=== PATIENT | male | born 1995 | race Caucasian/White ===

== ENCOUNTER 2016-06-28 15:43 | Emergency (ER) | payer MEDICAID ==
[~2016-06-28] VITALS: Ht 177.8 cm; Wt 62.6 kg
[~2016-06-28 15:43] MED LIST: AUGMENTIN 500 M1 TAB PO; Acetaminophen/Hydrocodone Bi PO; FLONASE NASAL50 MCG NS; ISONIAZID PO; ISONIAZID100 MG PO; MIRTAZAPINE15 MG PO; MONTELUKAST TAB 10MG; MOTRIN600 MG PO; PROVENTIL HFA M18 GM; PYRIDOXINE HCL50 M1 PO; QVAR HFA M80 MCG/ACT; TYLENOL ES500 MG PO; VITAMIN B650 M1 PO; [UNRECOGNIZED DRUG - OTHER]
[2016-06-28 15:53] VITALS: BP 107/67
--- NOTE | 2016-06-28 16:34 | NUR ---
Patient ambulated to bed 07.
--- NOTE | 2016-06-28 16:55 | NUR ---
PATIENT PRESENTS TO ED WITH ABD PAIN X3 DAYS WITH SOB; . DENIES N/V/D; SKIN IS PINK/WARM/DRY; AAOX4 WITH EVEN AND STEADY GAIT; LUNGS CLEAR BL; HR EVEN AND REGULAR; PT DENIES ANY FEVER, CP, OR COUGH AT THIS TIME; PATIENT STATES PAIN OF 8/10 AT THIS TIME; VSS; PATIENT POSITIONED FOR COMFORT; HOB ELEVATED; BEDRAILS UP X2; BED DOWN. ER MD MADE AWARE OF PT STATUS.
--- NOTE | 2016-06-28 16:56 | NUR ---
Dr. Mak evaluating patient at bedside.
[2016-06-28] MEDS ORDERED: NACL 0.9% 1,000 ML IV ONE (16:57)
[2016-06-28] MEDS ORDERED: ONDANSETRON 4 MG/2 ML VIAL IVP ONE (17:00)
[2016-06-28] MEDS ORDERED: KETOROLAC 30 MG/ML VIAL IVP ONE (17:00)
--- NOTE | 2016-06-28 17:01 | NUR ---
Patient going to CT via wheelchair per tech.
--- NOTE | 2016-06-28 17:11 | NUR ---
Patient back from CT via wheelchair per tech.
--- NOTE | 2016-06-28 17:38 | NUR ---
PATIENT MEDICATED FOR NAUSE AND ABD. PAIN
[2016-06-28 18:30] VITALS: BP 129/75
--- NOTE | 2016-06-28 18:30 | NUR ---
Patient discharged with v/s stable. Written and verbal after care instructions given and explained. Patient alert, oriented and verbalized understanding of instructions. Ambulatory with steady gait. All questions addressed prior to discharge. ID band removed. Patient advised to follow up with PMD. Rx of TRAMADOL,MAGNESIUM CITRATE,LACTULOSE,ZOFRAN given. Patient educated on indication of medication including possible reaction and side effects. Opportunity to ask questions provided and answered.
== END 2016-06-28 18:30 | disposition home or self-care (01) ==
LOC: MED 15:43
DX: K59.00 Constipation, unspecified (principal); J45.909 Unspecified asthma, uncomplicated
CPT/HCPCS: 36415; 74176; 80053; 85025; 96361; 96374; 96375; 99285; J1885; J2405; J7030

== ENCOUNTER 2016-07-01 22:49 | Emergency (ER) | payer MEDICAID ==
[~2016-07-01] VITALS: Ht 177.8 cm; Wt 63.5 kg
[2016-07-01 23:26] VITALS: BP 106/84
--- NOTE | 2016-07-02 00:23 | NUR ---
PATIENT AMBULATED TO ER BED 04
--- NOTE | 2016-07-02 00:23 | NUR ---
PT TAKEN TO BED 4
--- NOTE | 2016-07-02 00:34 | NUR ---
20/M BIB FAMILY C/O N/V x TODAY. PT STATES HE WAS IN ED 2 DAYS AGO FOR ABD PAIN. PT STATES HE STARTED VOMITING x3 TODAY AND DURING THE THIRD TIME HE NOTICED BLOOD ON HIS VOMIT. PT STATES PAIN IN LOWER ABDOMEN 8/10 PRESSURE NON-RADIATING. AAOx4 PERRLA, BREATHING EVEN AND EFFORTLESS. ERMD AWARE OF PATIENT STATUS.
--- NOTE | 2016-07-02 00:52 | NUR ---
Dr. Tomlinson evaluating patient at bedside.
[2016-07-02] MEDS ORDERED: FAMOTIDINE 20 MG TAB PO ONE (01:30)
--- NOTE | 2016-07-02 01:38 | NUR ---
PO MEDICATION GIVEN ORDERED WITH EDUCATION. PATIENT VERBALIZED UNDERSTANDING AND TOLERATED WELL. WILL REASSESS
--- NOTE | 2016-07-02 01:52 | NUR ---
Patient discharged with v/s stable. Written and verbal after care instructions given and explained by DR. Tomlinson. Patient alert, oriented and verbalized understanding of instructions. Ambulatory with steady gait. All questions addressed prior to discharge. ID band removed. Patient advised to follow up with PMD. Rx of PEPCID 40MG TABLET given. Patient educated on indication of medication including possible reaction and side effects. Opportunity to ask questions provided and answered.
[2016-07-02 01:56] VITALS: BP 111/72
== END 2016-07-02 01:52 | disposition home or self-care (01) ==
LOC: MED 22:49
DX: K25.9 Gastric ulcer, unspecified as acute or chronic, without hemorrhage or perforation (principal); J45.909 Unspecified asthma, uncomplicated

== ENCOUNTER 2016-09-08 12:11 | Emergency (ER) | payer MEDICAID ==
[~2016-09-08] VITALS: Ht 177.8 cm; Wt 59.0 kg
[~2016-09-08 12:11] MED LIST changes: +ALBU0.0912; -AUGMENTIN 500 M1 TAB PO; +BECL0.089; -FLONASE NASAL50 MCG NS; -ISONIAZID PO; -ISONIAZID100 MG PO; -MIRTAZAPINE15 MG PO; -MONTELUKAST TAB 10MG; -MOTRIN600 MG PO; -PROVENTIL HFA M18 GM; -PYRIDOXINE HCL50 M1 PO; -QVAR HFA M80 MCG/ACT; -TYLENOL ES500 MG PO; -VITAMIN B650 M1 PO; -[UNRECOGNIZED DRUG - OTHER]
[2016-09-08 12:25] VITALS: BP 80/49
[2016-09-08 14:17] LABS: BASOPHILS # (AUTO) 0.2 K/uL (0.00-0.22); EOSINOPHILS # (AUTO) 0.2 K/uL (0-0.4); EOSINOPHILS % (AUTO) 2.1 % (0.0-4.0); HEMOGLOBIN 14.8 g/dL (12.0-18.0); LYMPHOCYTES # (AUTO) 1.5 K/uL (2.0-11.5); LYMPHOCYTES % (AUTO) 14.9 % (20.5-51.1); MEAN CORPUSCULAR HEMOGLOBIN 31 pg (27-31); MEAN CORPUSCULAR HGB CONC 34 g/dL (33-37); MEAN CORPUSCULAR VOLUME 91 fL (80-94); MONOCYTES # (AUTO) 0.7 K/uL (0.8-1.0); MONOCYTES % (AUTO) 6.9 % (1.7-9.3); NEUTROPHILS # (AUTO) 7.3 K/uL (1.8-7.7); PLATELET COUNT (AUTO) 268 K/uL (140-450); RED BLOOD CELL COUNT(AUTO) 4.83 MIL/uL (4.20-6.10); RED CELL DISTRIBUTION WIDTH 12.2 % (11.6-13.7); WHITE BLOOD COUNT (AUTO) 9.9 K/uL (4.8-10.8)
[2016-09-08 14:26] LABS: ANION GAP 6.8 (8-16); CALCIUM 8.8 mg/dL (8.5-10.1); CARBON DIOXIDE 33.3 mmol/L (21-32); CHLORIDE 108 mmol/L (98-107); CREATININE 0.9 mg/dL (0.6-1.3); GFR ARICAN-AMERICAN 137 mL/min (>90); GFR NON ARICAN-AMERICAN 113 mL/min (>90); GLUCOSE 87 mg/dL (74-106); POTASSIUM 4.1 mmol/L (3.5-5.1); SODIUM SERUM 144 mmol/L (136-145); UREA NITROGEN, BLOOD 14 mg/dL (7-18)
[2016-09-08 14:32] LABS: ALANINE AMINOTRANSFERASE 32 U/L (12-78); ALBUMIN 3.9 g/dL (3.4-5.0); ALKALINE PHOSPHATASE 95 U/L (46-116); ASPARTATE AMINOTRANSFERASE 17 U/L (15-37); TOTAL BILIRUBIN 0.3 mg/dL (0.0-1.0); TOTAL PROTEIN, SERUM 7.5 g/dL (6.4-8.2)
[2016-09-08 14:33] LABS: ALCOHOL, BLOOD < 3 mg/dL (<3)
[2016-09-08 15:00] VITALS: BP 101/61
[2016-09-08 15:40] LABS: APPEARANCE,URINE HAZY (CLEAR); BILIRUBIN,URINE NEGATIVE (NEGATIVE); BLOOD, URINE TRACE-L (NEGATIVE); COLOR,URINE YELLOW (YELLOW); NITRITE, URINE POSITIVE (NEGATIVE); PH,URINE 6.5 (5.0-9.0); PROTEIN,URINE NEGATIVE (NEGATIVE); UGLUCOSE NEGATIVE (NEGATIVE)
[2016-09-08 15:45] LABS: AMPHETAMINE, URINE POS. ng/ml (NEG <=1000); BARBITURATE, URINE NEG. ng/ml (NEG <=200); BENZODIAZEPINE, URINE NEG. ng/mL (NEG <=200); CANNABINOID, URINE NEG. ng/mL (NEG <=50); COCAINE, URINE NEG. ng/mL (NEG <=300); OPIATE, URINE NEG. ng/mL (NEG <=2000); PHENCYCLIDINE SCREEN,URINE NEG. ng/mL (NEG <=25)
[2016-09-08 15:52] LABS: LEUKOCYTE ESTERASE ,URINE TRACE (NEGATIVE); RBC,URINE 0-3 /HPF (0-5); WBC,URINE 15-30 /HPF (0-5)
[2016-09-08 15:53] LABS: BACTERIA,URINE 2+ /HPF (None Seen); MUCUS,URINE 1+ /LPF (None Seen); SQUAMOUS EPITHELIAL CELL,UR 0-3 /LPF (0-3 (FEW)); URINE AMORPHOUS URATE 1+ /HPF (None Seen)
== END 2016-09-08 15:10 | disposition left against medical advice (07) ==
LOC: MED 12:11
DX: R53.1 Weakness (principal); M25.562 Pain in left knee; M25.561 Pain in right knee; G61.0 Guillain-Barre syndrome; J45.909 Unspecified asthma, uncomplicated
CPT/HCPCS: 36415; 70450; 80053; 80305; 81001; 82948; 83735; 85025; 99285; G0482

== ENCOUNTER 2016-09-09 07:50 | Emergency (ER) | payer MEDICAID ==
[~2016-09-09] VITALS: Ht 177.8 cm; Wt 54.4 kg
[~2016-09-09 07:50] MED LIST changes: -ALBU0.0912; +AUGMENTIN 500 M1 TAB PO; -BECL0.089; +FLONASE NASAL50 MCG NS; +ISONIAZID PO; +ISONIAZID100 MG PO; +MIRTAZAPINE15 MG PO; +MONTELUKAST TAB 10MG; +MOTRIN600 MG PO; +PROVENTIL HFA M18 GM; +PYRIDOXINE HCL50 M1 PO; +QVAR HFA M80 MCG/ACT; +TYLENOL ES500 MG PO; +VITAMIN B650 M1 PO; +[UNRECOGNIZED DRUG - OTHER]
--- NOTE | 2016-09-09 07:50 | NUR ---
PATIENT PRESENTS TO ED WITH ABDOMINAL TENDERNESS AND SUPRAPUBIC PAIN UPON VOIDING . PT STATES . DENIES N/V/D; SKIN IS PINK/WARM/DRY; AAOX4 WITH EVEN AND STEADY GAIT; LUNGS CLEAR BL; HR EVEN AND REGULAR; PT DENIES ANY FEVER, CP, SOB, OR COUGH AT THIS TIME; PATIENT STATES PAIN OF 10/10 AT THIS TIME; VSS; PATIENT POSITIONED FOR COMFORT; HOB ELEVATED; BEDRAILS UP X2; BED DOWN. ER MD MADE AWARE OF PT STATUS.
--- NOTE | 2016-09-09 07:50 | NUR ---
PATIENT WHEELCHAIR ASSISTED TO BED 3.
[2016-09-09 07:54] VITALS: BP 109/68
[2016-09-09] MEDS ORDERED: NACL 0.9% 1,000 ML IV ONE (08:00)
[2016-09-09] MEDS ORDERED: KETOROLAC 30 MG/ML VIAL IVP ONE (08:00)
[2016-09-09] MEDS ORDERED: ONDANSETRON 4 MG/2 ML VIAL IVP ONE (08:00)
--- NOTE | 2016-09-09 08:10 | NUR ---
REQUEST PT TO PROVIDE WITH URINE SAMPLE, PER PT UNABLE TO AT THIS TIME. PT CONTINUES TO REST WITH OU CLOSED , NO GRIMACE NO MOAN NOTED--WHEN REASSESSING BS, PT GRIMACED. ABDOMEN FLAT, NO DISCOLORATION NOTED WARM TO TOUCH. WILL CONTINUE TO OBSERVE FOR CHANGES AND PAIN CONTROL.
--- NOTE | 2016-09-09 08:50 | NUR ---
AMBULATED TO AND FROM RESTROOM AFTER PT ATTEMPTED TO USE URINAL AT BEDSIDE AND UNABLE-----VOIDED URINE SAMPLE OBTAINED FROM PT
[2016-09-09] MEDS ORDERED: MORPHINE SULFATE 4 MG/ML SYR IVP ONE (08:55)
--- NOTE | 2016-09-09 08:55 | NUR ---
NOTIFIED PT COMPLAINING OF PAIN---CT SCAN ORDERED , URINE AND LABS COLLECTED.
--- NOTE | 2016-09-09 09:10 | NUR ---
PT TO CT VIA [facility]
--- NOTE | 2016-09-09 09:14 | NUR ---
PT RETURNED FROM CT SCAN---AWAKE USING CELL PHONE
--- NOTE | 2016-09-09 10:15 | NUR ---
MD AT BEDSIDE---PT HAS BEEN HOLDING CONVERSATION WITH GIRLFRIEND AT BEDSIDE.
[2016-09-09] MEDS ORDERED: cefTRIAXone 1,000 MG VIAL ONE (10:22)
--- NOTE | 2016-09-09 10:40 | NUR ---
PLACED ON HIGH FLOW 02 INSTRUCTED BY --
--- NOTE | 2016-09-09 10:52 | NUR ---
SPOKE WITH PT--PLAN IS TO DC, PT OKAY WITH PLAN
--- NOTE | 2016-09-09 11:41 | NUR ---
Patient discharged with v/s stable. Written and verbal after care instructions given and explained. Patient alert, oriented and verbalized understanding of instructions. Ambulatory with steady gait. All questions addressed prior to discharge. ID band removed. Patient advised to follow up with PMD. Rx of KEFLEX/ZOFRAN/MOTRIN given. Patient educated on indication of medication including possible reaction and side effects. Opportunity to ask questions provided and answered.
[2016-09-09 11:42] VITALS: BP 105/61
== END 2016-09-09 11:41 | disposition home or self-care (01) ==
LOC: MED 07:50
DX: N39.0 Urinary tract infection, site not specified (principal); J93.83 Other pneumothorax
CPT/HCPCS: 36415; 71250; 74176; 80053; 80305; 81001; 83690; 85025; 87086; 87186; 96361; 96365; 96375; 99285; J0696; J1885; J2270; J2405; J7030; J7060

== ENCOUNTER 2016-10-17 13:29 | Emergency (ER) | payer SELFPAY ==
[~2016-10-17 13:29] MED LIST changes: +ALBU0.0912; -AUGMENTIN 500 M1 TAB PO; +BECL0.089; -FLONASE NASAL50 MCG NS; -ISONIAZID PO; -ISONIAZID100 MG PO; -MIRTAZAPINE15 MG PO; -MONTELUKAST TAB 10MG; -MOTRIN600 MG PO; -PROVENTIL HFA M18 GM; -PYRIDOXINE HCL50 M1 PO; -QVAR HFA M80 MCG/ACT; -TYLENOL ES500 MG PO; -VITAMIN B650 M1 PO; -[UNRECOGNIZED DRUG - OTHER]
--- NOTE | 2016-10-17 14:19 | NUR ---
CALLED PT FOR TRIAGE ASSESSMENT,NO ANSWER.
--- NOTE | 2016-10-17 14:40 | NUR ---
PATIENT LEFT WITHOUT BEING SEEN BY DR. TRIPP. NO FURTHER CARE PROVIDED FOR PATIENT.
== END 2016-10-17 14:40 | disposition left against medical advice (07) ==
LOC: MED 13:29
DX: Z53.21 Procedure and treatment not carried out due to patient leaving prior to being seen by health care provider (principal)